=== PATIENT | female | born 1965 | race Two or more races ===

== ENCOUNTER 2018-03-24 12:33 | Emergency (ER) | payer OTHER ==
[~2018-03-24] VITALS: Ht 154.9 cm; Wt 70.8 kg
[~2018-03-24 12:33] MED LIST: KETO10TA2 PO; ORPH100T PO
== END 2018-03-24 17:11 | disposition home or self-care (01) ==
LOC: ER 12:33
DX: M62.838 Other muscle spasm (principal)

== ENCOUNTER 2019-09-13 19:48 | Emergency (ER) | payer OTHER ==
[~2019-09-13] VITALS: Ht 154.9 cm; Wt 68.9 kg
[2019-09-14] MEDS ORDERED: LEVSIN/SL0.125 MG SL (03:09)
[2019-09-14] MEDS ORDERED: KEFLEX500 MG PO (03:09)
== END 2019-09-14 03:21 | disposition home or self-care (01) ==
LOC: ER 19:48 → EDBD 19:48 → ER 20:06
DX: N39.0 Urinary tract infection, site not specified (principal); R10.31 Right lower quadrant pain; N20.0 Calculus of kidney

== ENCOUNTER 2019-09-21 16:16 | Emergency (ER) | payer OTHER ==
[~2019-09-21] VITALS: Ht 154.9 cm; Wt 68.9 kg
[~2019-09-21 16:16] MED LIST changes: +KEFLEX500 MG PO; +LEVSIN/SL0.125 MG SL
[2019-09-21] MEDS ORDERED: AMBIEN10 MG PO (16:46)
[2019-09-21] MEDS ORDERED: BUTALBIT-ACETA1 EACH PO (20:20)
== END 2019-09-21 21:30 | disposition home or self-care (01) ==
LOC: ER 16:16
DX: R51 Headache (principal); R07.89 Other chest pain

== ENCOUNTER 2021-06-05 12:22 | Emergency (ER) | payer OTHER ==
[~2021-06-05] VITALS: Ht 154.9 cm; Wt 62.6 kg
[~2021-06-05 12:22] MED LIST changes: +AMBIEN10 MG PO; +BUTALBIT-ACETA1 EACH PO
[2021-06-05] MEDS ORDERED: ADULT LOW DOSE81 M1 (12:35)
[2021-06-05] MEDS ORDERED: PREGABALIN75 MG PO (12:35)
== END 2021-06-05 16:01 | disposition home or self-care (01) ==
LOC: ER 12:22
DX: S16.1XXA Strain of muscle, fascia and tendon at neck level, initial encounter (principal); X58.XXXA Exposure to other specified factors, initial encounter; Y92.89 Other specified places as the place of occurrence of the external cause

== ENCOUNTER 2022-12-08 14:28 | Emergency (ER) | payer OTHER ==
[~2022-12-08] VITALS: Ht 154.9 cm; Wt 62.6 kg
[~2022-12-08 14:28] MED LIST changes: +ADULT LOW DOSE81 M1; +PREGABALIN75 MG PO
== END 2022-12-08 19:56 | disposition home or self-care (01) ==
LOC: ER 14:28
DX: R10.11 Right upper quadrant pain (principal)

== ENCOUNTER 2023-05-11 10:43 | Outpatient (CLI) | payer OTHER | END 2023-05-11 10:56 | disposition home or self-care (01) | LOC: TOM 10:43 | DX: R10.32 Left lower quadrant pain (principal) ==

== ENCOUNTER 2025-05-16 07:50 | Outpatient (CLI) | payer OTHER | END 2025-05-16 07:51 | disposition home or self-care (01) | LOC: NUCLEAR 07:50 | DX: I73.9 Peripheral vascular disease, unspecified (principal); I87.2 Venous insufficiency (chronic) (peripheral) ==

== ENCOUNTER 2025-07-12 12:40 | Outpatient (CLI) | payer OTHER | END 2025-07-12 12:46 | disposition home or self-care (01) | LOC: SONOGRAMA 12:40 | DX: M25.561 Pain in right knee (principal) ==